=== PATIENT | female | born 1965 | race Caucasian/White ===

== ENCOUNTER → 2022-02-06 | Outpatient (CLI) | payer OTHER ==
--- NOTE | 2022-02-06 15:36 | RAD ---
PQRS Compliance Statement: One or more of the following individualized dose reduction techniques were utilized for this examinat ion: 1. Automated exposure control 2. Adjustment of the mA and/or kV according to patient size 3. Use of iterative reconstruction technique CT MAXILLOFACIAL WITHOUT CONTRAST 02/06/2022 11:31 AM Indication: Osteoma COMPARISON: None available. TECHNIQUE: Multiple axial CT images of the maxillofacial structures were obtained with intravenous co ntrast. Coronal and sagittal reformats are provided. FINDINGS: There is an osseous outgrowth from the central midline frontal calvaria measuring 9 x 4 mm suggestive of an osteoma. There is mild mucosal thickening of the left posterior ethmoid air cells. Mild mucosa l thickening of the left maxillary sinus measuring 1 to 2 mm in thickness. Temporomandibular joints a re well aligned. Middle ear cavities and mastoid air cells are well aerated. No acute fracture. Orbit s are normal in appearance. No suspicious normality involving the posterior fossa are visualized port ions of the brain parenchyma. 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 Electronically signed by: Nelli Orozco MD (02/06/2022 3:34 PM) [id number]
== END ==
LOC: CT 15:39
PROVIDERS: ATTEND Plastic Surgery
DX: D16.4 Benign neoplasm of bones of skull and face (principal); J32.2 Chronic ethmoidal sinusitis; J32.0 Chronic maxillary sinusitis
CPT/HCPCS: 70486